=== PATIENT | male | born 1960 | race Hispanic/Latino ===

== ENCOUNTER 2016-12-25 08:30 | Outpatient (CLI) | payer OTHER ==
--- NOTE | 2016-12-25 20:38 | RAD ---
CHEST TWO VIEWS 12/25/16 The heart is normal in size. The lungs are clear. No infiltrate or effusion was seen. There is no si gn of active thoracic disease. IMPRESSION: No acute finding. POS: HOME
== END 2016-12-25 08:31 | disposition home or self-care (01) ==
LOC: BURRAD 08:30
PROVIDERS: ATTEND Family Medicine
DX: R76.11 Nonspecific reaction to tuberculin skin test without active tuberculosis (principal)
CPT/HCPCS: 71020